=== PATIENT | female | born 1955 | race Caucasian/White ===

== ENCOUNTER 2020-10-29 19:46 | Emergency (ER) | payer SELFPAY ==
--- NOTE | 2020-10-29 20:50 | EDM.PDOC ---
ED HPI GENERAL MEDICAL PROBLEM - General Chief Complaint: Genitourinary Problem Stated Complaint: BLOOD IN URINE Time Seen by Provider: 10/29/20 20:40 Source of Information: Reports: Patient, RN Notes Reviewed History Limitations: Reports: No Limitations - History of Present Illness INITIAL COMMENTS - FREE TEXT/NARRATIVE: Patient is a 65-year-old female who presents to the ER for evaluation of her urinary symptoms. Patient notes that she has been having some issue for the last few days however she noted that her urine did change color and has not noticed more urine frequency. She is having some burning with urination but has had no fevers or chills, nausea or vomiting or diarrhea, or any sort of back discomfort or kidney discomfort that she is aware of. She is in fairly good health otherwise and denies any other major past medical history. - Related Data Allergies Allergy/AdvReac Type Severity Reaction Status Date / Time No Known Allergies Allergy Verified 10/29/20 20:22 Home Meds: Home Meds Cefdinir [Omnicef] 300 mg PO BID 7 Days #14 cap 10/29/20 [Rx] Past Medical History - Past Health History Medical/Surgical History: Denies Medical/Surgical History ED ROS GENERAL - Review of Systems Review Of Systems: Comprehensive ROS is negative, except as noted in HPI. ED EXAM, RENAL/ - Physical Exam Exam: See Below Exam Limited By: No Limitations General Appearance: Alert, WD/WN, No Apparent Distress Respiratory/Chest: No Respiratory Distress, Lungs Clear, Normal Breath Sounds, No Accessory Muscle Use, Chest Non-Tender Cardiovascular: Normal Peripheral Pulses, Regular Rate, Rhythm, No Edema GI/Abdominal: Normal Bowel Sounds, Soft, Non-Tender, No Distention, No Mass Extremities: Normal Inspection, Normal Capillary Refill Neurological: Alert, Oriented, Normal Cognition, No Motor/Sensory Deficits Psychiatric: Normal Affect, Normal Mood Skin Exam: Warm, Dry, Intact, Normal Color, No Rash Course - Vital Signs Last Recorded V/S: Last Vital Signs Temp 99.2 F 10/29/20 20:20 Pulse 88 10/29/20 20:20 Resp 16 10/29/20 20:20 BP 157/97 H 10/29/20 20:20 Pulse Ox 99 10/29/20 20:20 - Orders/Labs/Meds Orders: Active Orders 24 hr Category Date Time Status CULTURE URINE [MREF] Stat Lab 10/29/20 20:30 Received Labs: Laboratory Tests 10/29/20 Range/Units 20:30 Urine Color Brown H (Yellow) Urine Appearance Clear (Clear) Urine pH 6.0 (5.0-8.0) Ur Specific [place] 1.020 (1.005-1.030) Urine Protein 2+ H (Negative) Urine Glucose (UA) Negative (Negative) Urine Ketones Negative (Negative) Urine Occult Blood 3+ H (Negative) Urine Nitrite Negative (Negative) Urine Bilirubin Negative (Negative) Urine Urobilinogen 0.2 (0.2-1.0) Ur Leukocyte Esterase 2+ H (Negative) Urine RBC Too numerous to cnt H (0-5) /hpf Urine WBC 20-30 H (0-5) /hpf Ur Squamous Epith Cells Not seen (0-5) /hpf Urine Bacteria Few (FEW) /hpf Urine Mucus Not seen (FEW) /hpf - Re-Assessments/Exams Free Text/Narrative Re-Assessment/Exam: 10/29/20 20:48 Patient presents to the ER for UTI symptoms, a urinalysis was obtained at time of triage, and it is grossly positive for hemorrhagic cystitis. We will go ahead and get her started on Omnicef for management, patient is nontoxic in appearance. Culture has reflexed for antibiotic stewardship. Departure - Departure Time of Disposition: 20:49 Disposition: Home, Self-Care 01 Condition: Good Clinical Impression: UTI (urinary tract infection) Qualifiers: Urinary tract infection type: acute cystitis Hematuria presence: with hematuria Qualified Code(s): N30.01 - Acute cystitis with hematuria - Discharge Information *PRESCRIPTION DRUG MONITORING PROGRAM REVIEWED*: No *COPY OF PRESCRIPTION DRUG MONITORING REPORT IN PATIENT QUAN: No Prescriptions: Cefdinir [Omnicef] 300 mg PO BID 7 Days #14 cap Instructions: Urinary Tract Infection, Adult, [id number] Referrals: PCP,None [Primary Care Provider] - Additional Instructions: You have been evaluated in the ED for your urinary symptoms. Your urinalysis was consistent with an acute urinary tract infection. Your urine was sent for culture, and you will be notified if you should need a change in your antibiotic. This may take up to 48 hours to result. You may take AZO for urinary pain relief. This is available over the counter, and can be attained at any retail store like [employer] or any pharmacy. Please be aware that this medication will make your urine turn orange. You should only use this medication for a time period not longer than 72 hours. You have been given a prescription for Omnicef (cefdinir), 300 mg 1 tablet 2 times a day for 7 days. Please note that the antibiotics can take up to 48 hours to start working. This medication was electronically sent to the [place] [facility] located in the [facility] store. Please increase your oral fluid intake and try to stay adequately hydrated. Please return to the ED if your symptoms change or worsen. Sepsis Event Note (ED) - Evaluation Sepsis Screening Result: No Definite Risk - Focused Exam Vital Signs: Vital Signs Temp Pulse Resp BP Pulse Ox 10/29/20 20:20 99.2 F 88 16 157/97 H 99
== END 2020-10-29 21:15 | disposition home or self-care (01) ==
LOC: JD.ED 19:46
DX: N30.01 Acute cystitis with hematuria (principal)
CPT/HCPCS: 81001; 87086; 87088; 87186; 99283